=== PATIENT | male | born 1985 | race Caucasian/White ===

== ENCOUNTER 2023-07-26 20:29 | Emergency (ER) | payer SELFPAY ==
[~2023-07-26] VITALS: Ht 165.1 cm; Wt 95.7 kg
[2023-07-26 21:18] VITALS: BP 129/84; PULSE 83; RESP 20; TEMP 97.3; O2SAT 98
[2023-07-26] MEDS ORDERED: IBUP-2213 PO (22:40)
[2023-07-26] MEDS ORDERED: AMOX1TAB8 PO (22:40)
== END 2023-07-26 23:07 | disposition home or self-care (01) ==
LOC: MED 20:29
DX: K04.7 Periapical abscess without sinus (principal); Z79.899 Other long term (current) drug therapy
CPT/HCPCS: 99281; 99283